=== PATIENT | male | born 1955 | race Caucasian/White ===

== ENCOUNTER → 2017-12-16 10:48 | Outpatient (CLI) | payer BC, SELFPAY ==
[2014-12-21 12:18] VITALS: BP 122/79
[2017-12-16 11:38] LABS: Hematocrit 44.1 % (40-54); Hemoglobin 15.5 g/dl (13.0-16.5); Mean Corp Hgb Conc 35.1 g/gl (32-36); Mean Corpuscular Hgb 29.4 pg (27.0-32.0); Mean Corpuscular Volume 83.7 fL (80-94); Mean Platelet Vol. 9.7 fl (6.2-12.0); Platelet Count 230 K/mm3 (150-450); RBC Distribution Width CV 13.9 % (11.6-14.6); RBC Distribution Width SD 42.1 fl (35.1-43.9); Red Blood Count 5.27 M/mm3 (4.6-6.2); White Blood Count 4.5 K/mm3 (4.4-11.0)
[2017-12-16 11:40] LABS: Scan Indicated on CBC? Y/N NO
[2017-12-16 12:04] LABS: PSA,Total - Annual Screen 4.19 ng/mL (0.00-4.00)
[2017-12-16 12:09] LABS: ALB/GLOB Ratio 1.2 RATIO (0.9-2.4); AST(SGOT) 16 U/L (15-37); Alanine Aminotransfer ALT/SGPT 28 U/L (16-61); Albumin, Serum 4.1 g/dL (3.2-5.0); Alkaline Phosphatase 75 U/L (45-117); Anion Gap 6 (5-15); BUN 18 mg/dL (7-18); BUN/Creat Ratio 19.6 RATIO (10-20); Chloride 104 mmol/L (98-107); Creatinine, Serum 0.92 mg/dL (0.70-1.30); EST Glomerular Filtration Rate 88 mL/min (>60); Est Glom Filt Rate - Afr Amer 107 mL/min (>60); Globulin 3.4 g/dL (2.2-4.2); Glucose 96 mg/dL (70-110); Potassium 3.9 mmol/L (3.5-5.1); Protein, Total 7.5 g/dL (6.4-8.2); Sodium Level 139 mmol/L (136-145); Thyroid Stim Hormone (TSH) 0.97 uIU/mL (0.358-3.74)
[2017-12-17 03:56] LABS: Rapid Plasmin Reagin (RPR) NONREACTIVE (NONREACTIVE)
[2017-12-17 08:32] LABS: Vitamin B12 302 pg/mL (211-911)
== END ==
PROVIDERS: Family Provider Family Medicine; PCP Family Medicine; Visit Provider Psychiatry & Neurology Neurology
DX: R41.3 Other amnesia (principal); R25.1 Tremor, unspecified; Z12.5 Encounter for screening for malignant neoplasm of prostate
CPT/HCPCS: 36415; 80053; 82607; 84153; 84443; 85027; 86592; G0103

== ENCOUNTER → 2018-01-24 16:53 | Outpatient (CLI) | payer BC, SELFPAY ==
--- NOTE | 2018-01-24 17:46 | MRI_ITS ---
STUDY: MRI BRAIN WITHOUT CONTRAST REASON FOR EXAM: Male, 62 years old. Left hand tremors TECHNIQUE: Standardized multiplanar fat and water weighted pulse sequences were obtained. COMPARISON: None. FINDINGS: Mild atrophy and minor periventricular white matter ischemic changes without evidence for acute infarct.. Normal bilateral basal ganglia. Normal thalami. There is no extra-axial fluid accumulation. Normal flow voids within the major intracranial circulation suggesting patency by spin echo criteria. Normal sella turcica, pituitary gland, infundibular stalk, optic chiasm and hypothalamus. Normal tectal plate and pineal gland. Normal midbrain, ludy and medulla. Normal cerebellum. Normal basal cisterns. Normal bilateral temporal bones. Normal bilateral internal auditory canals. No demonstrated orbital abnormality, within the constraints of a routine brain study. There is mild bilateral ethmoid sinus disease. Normal calvarium and skull base. Normal visualized soft tissue structures. Normal visualized upper cervical spine. MRI/Brain without Contrast IMPRESSION: Mild atrophy and minor periventricular white matter ischemic changes without evidence for acute infarct Electronically Signed: Yadiel Augustin MD at 21:31 EDT , Service support ,
== END ==
PROVIDERS: Family Provider Family Medicine; PCP Family Medicine; Visit Provider Psychiatry & Neurology Neurology
DX: R41.3 Other amnesia (principal); R25.1 Tremor, unspecified
CPT/HCPCS: 70551

== ENCOUNTER → 2018-03-24 07:54 | Outpatient (CLI) | payer BC, SELFPAY ==
[2018-03-24 10:22] LABS: Glucose 110 mg/dL (74-106); PSA,Total - Annual Screen 3.86 ng/mL (0.00-4.00)
== END ==
PROVIDERS: Family Provider Family Medicine; PCP Family Medicine; Visit Provider Family Medicine
DX: E66.9 Obesity, unspecified (principal); Z12.5 Encounter for screening for malignant neoplasm of prostate
CPT/HCPCS: 36415; 82947; 84153; G0103

== ENCOUNTER 2019-01-11 07:00 | Inpatient (IN) | payer BC, SELFPAY ==
[2018-12-28 15:15] VITALS: BP 125/70; PULSE 84; RESP 17; TEMP 36.9; O2SAT 97; BMI 33.7
--- NOTE | 2018-12-28 15:36 | SDCEKG_ITS ---
Test Reason : Blood Pressure : / mmHG Vent. Rate : 080 BPM Atrial Rate : 080 BPM P-R Int : 146 ms QRS Dur : 092 ms QT Int : 350 ms P-R-T Axes : 046 -03 023 degrees QTc Int : 403 ms Normal sinus rhythm Possible Left atrial enlargement Borderline ECG Confirmed by GABRIEL HENSON, KORY ([id number]), slot editor BRANDIE CALLAHAN ([id number]) on 12/30/2018 8:36:44 AM Referred By: Mac Bhardwaj Confirmed By:KORY RIOS MD
[2018-12-28 16:27] LABS: Absolute Lymphocyte Count 1.34 X10^3/ul (0.83-4.51); Basophil# 0.02 X10^3/uL; Basophil% 0.3 % (0-1); Eosinophil# 0.04 X10^3/uL; Eosinophils% 0.7 % (0-5); Hematocrit 47.3 % (40-54); Hemoglobin 15.8 g/dl (13.0-16.5); Lymphocyte # 1.34 X10^3/ul (4.0); Lymphocyte % 22.6 % (19-41); Mean Corp Hgb Conc 33.4 g/gl (32-36); Mean Corpuscular Hgb 28.8 pg (27.0-32.0); Mean Corpuscular Volume 86.3 fL (80-94); Mean Platelet Vol. 9.5 fl (6.2-12.0); Monocyte# 0.54 X10^3/uL; Monocyte% 9.1 % (0-10); Neutrophil # 3.97 X10^3/uL (2.7-7.7); Neutrophil % 67.1 % (47-70); Platelet Count 248 K/mm3 (150-450); RBC Distribution Width CV 13.1 % (11.6-14.6); RBC Distribution Width SD 40.5 fl (35.1-43.9); Red Blood Count 5.48 M/mm3 (4.6-6.2); White Blood Count 5.9 K/mm3 (4.4-11.0)
[2018-12-28 16:36] LABS: POSITIVE COUNT NO; POSITIVE DIFFERENTIAL NO; POSITIVE MORPHOLOGY NO
--- NOTE | 2018-12-28 16:36 | PCM.HP.BLA ---
History and Physical DATE OF SURGERY: 01/11/2019 SCHEDULED PROCEDURE: Left total knee arthroplasty HISTORY OF PRESENT ILLNESS: This is a 63-year-old male who has been having ongoing left knee pain for several years. He states it is progressively been getting worse. Patient states his pain is now constant, dull, aching, and sharp. Patient has increased pain going up and down stairs, driving, and standing for extended periods of time. Pain is located over the medial joint line. Patient states pain does wake him at night. He has difficult time with doing leisure activities such as mowing, running, and kneeling due to the pain. She did stumble secondary to his left knee. Patient feels unsafe going up and down stairs. Patient has tried ice, heat, previous corticosteroid injection with no relief in symptoms. Patient has had 2 previous corticosteroid injections by Dr. Wagner. Patient reports slightly good relief from the first injection but no relief from the second injection. He has tried [id number] Advil with no relief in symptoms. Patient denies previous surgery on the left knee. Patient has a medical history pertinent for sleep apnea, essential tremors, and gastroesophageal reflux disease. He currently denies chest pain, shortness of breath, fevers chills, recent infections. We are obtaining surgical clearance from the patient's primary care physician. REVIEW OF SYSTEMS: ROS: Const: Denies change in appetite, fever and weight change. CV: Denies chest pain, heart murmur and irregular heartbeat. Resp: Denies cough, pneumonia, shortness of breath, tuberculosis and wheezing. GI: Denies constipation, diarrhea, heartburn, nausea, rectal itching, bloody stools and vomiting. : Denies incontinence. Musculo: Reports gait disturbance and trouble walking, but denies leg swelling, pain and weakness. Skin: Denies Raynaud's, history of shingles and tattoo. Neuro: Reports ambulatory dysfunction and tremor but denies dizziness and numbness/tingling. Psych: Denies anxiety, insomnia and stress. Terry/Lymph: Denies anemia, bleeding/bruising tendency and past transfusion. Reviewed, no changes. PAST MEDICAL HISTORY: Advance Care Plan: Other Directive, LIVING WILL Effective Date: 12/22/2018 Other Directive, POA Effective Date: 12/22/2018 PMH: Medical Problems: Sleep Apnea, Reflux, Seasonal Allergy, Rheumatic Fever as A Child Accidents: None Surgical Hx: Hernia Repair, Nasal Surgery, Fatty Tumors From Shoulder Anesthesia Complications: None Assistive Devices: Glasses Reviewed and updated. SOCIAL HISTORY: SH: Marital: .Occupation: Education Program Coordinator.Work Status: Currently Working.Hand Dominance: Right-handed. Personal Habits: Cigarette Use: Never Smoked Cigarettes.Smokeless Tobacco: Never Used Smokeless Tobacco.E-Cigarette Use: Never used.Alcohol: Denies use.Drug Use: Denies Use.Enjoy Exercising: Never Exercises. Reviewed, no changes. VITALS: Ht: 67.5 Wt: 224lb Wt k.606 BMI: 34.6 BP: 184/82 Pulse: 88 Resp: 12 T: 99.0 T: 37.2C ALLERGIES: Amoxicillin Penicillin MEDICATIONS: Primidone 50 mg tid, Vitamin B12 TR 1000 mcg 1po qday, Miralax 1po qday, Glucosamine Chondroitin 1500 Complex 1500 Com 1po qday, Multivitamins 1po qday, Vitamin D3 62106 Unit 1po qday, Claritin 10 mg by mouth once daily, Prilosec OTC 20 mg qd PRE-OP EXAM: General appearance:NORMAL Other: Eyes: Conjunctivae and lids: NORMAL Pupils: ERR Ears, Nose, Mouth, and Throat: NORMAL Other: Inspection of lips, teeth and gums: NORMAL Other: Neck: Examination of neck: no masses noted. Respiratory: Assessment of respiratory effort: NORMAL Other: Auscultation of lungs: clear to auscultation no wheezes, rhonchi or rales. Cardiovascular: Auscultation of heart: regular rate and rhythm, no murmurs, gallops or rubs. Exam of carotid arteries: NORMAL Other: Gastrointestinal: Exam of abdomen: soft, nontender, nondistended bowel sounds present. PHYSICAL EXAMINATION: Patient walks with an antalgic gait. Patient has varus alignment of the left knee. There is tenderness to palpation of the medial joint line. Positive effusion. Range of motion left knee: Lacks 7 of full extension to 110 flexion. Stable to varus valgus stress test. Partially correctable varus alignment. Positive click with Jem's examination. Sensation intact to light touch. Neurovascularly intact. IMAGING STUDIES: X-rays of the left knee reveal varus alignment with medial joint space narrowing, subchondral sclerosis, and osteophyte formation consistent with severe osteoarthritis. IMPRESSION: 1. Severe left knee osteoarthritis 2. Sleep apnea 3. Essential tremors 4. Gastroesophageal reflux disease PLAN: Dr. Mac Bhardwaj did discuss and review with the patient all treatment options including surgical versus nonsurgical options. Patient does wish to proceed with the above-stated procedure. Potential risks, benefits, and complications of the procedure were discussed in detail including but not limited to , infection, nerve and blood vessel damage, persistent pain, numbness, tingling, paresthesias, blood clot, pulmonary embolism, and requirement for possible further surgery. The patient expressed full understanding and has no further questions for the doctor. Patient does agree to proceed with the above-stated procedure and has signed the surgery consent form. This dictation was created using voice recognition software. Phonetic and/or grammatical errors may exist.. ___ I have re-examined the patient. There are no clinical changes since date of exam. ___ See progress notes for changes. ___ Dictated on admission Date: Time: Signature:
[2018-12-28 16:45] LABS: Anion Gap 7 (5-15); BUN 21 mg/dL (7-18); BUN/Creat Ratio 23.1 RATIO (10-20); Chloride 104 mmol/L (98-107); Creatinine, Serum 0.91 mg/dL (0.70-1.30); EST Glomerular Filtration Rate 89 mL/min (>60); Est Glom Filt Rate - Afr Amer 108 mL/min (>60); Glucose 77 mg/dL (74-106); Potassium 4.1 mmol/L (3.5-5.1); Sodium Level 139 mmol/L (136-145)
[2019-01-11] VITALS (14 sets, daily range): BP systolic 113–152; BP diastolic 60–79; PULSE 79–104; RESP 16–18; TEMP 36.7–37.3; O2SAT 91–99; BMI 33.7
[2019-01-11] MEDS: Celecoxib 200 MG Capsule 400 MG PO (07:44)
[2019-01-11] MEDS: oxyCODONE HCl Cr 10 MG Tablet PO (07:44)
[2019-01-11] MEDS: Acetaminophen 500 MG Tablet 1000 MG PO ×3 (07:45→21:05)
[2019-01-11] MEDS: Lactated Ringers 1,000 ML 999 ML IV ×2 (08:00→12:15)
[2019-01-11] MEDS: Scopolamine 1mg/72hr Patch 1 PATCH TD (10:00)
--- NOTE | 2019-01-11 10:20 | OP.PCM_ITS ---
Report of Operation Date of Procedure: 01/11/19 Pre-Operative Diagnosis: Left knee primary osteoarthritis Post-Operative Diagnosis: Left knee primary osteoarthritis Surgery/Procedure Performed:: Navigation assisted left total knee replacement Description of Surgical Findings:: Stable knee with good patella tracking feltmaker and weigher: Dona Laureano Type of Anesthesia:: Spinal Anesthesiologist: Jairo Escalona Special Medications: 600 mg clindamycin, 1 g TXA at incision, 1 g TXA closure, 10 mg Decadron, joint cocktail (5 mg Duramorph, 30 mL of 0.5% Ropivicaine, 1000 units of epinephrine, 30 mg of Toradol) Specimen's removed: Bony cuts Estimated Blood Loss (mL): 50 Fluids Replaced: 1400 mL crystalloid Description of Procedure: Implants used: 1. Chance size 6 press-fit triathlon cruciate retaining distal femoral component 2. Chance size 7 press-fit tibial baseplate 3. Chance X3 9 mm CS polyethylene 4. Chance X3 35 mm asymmetric patella Brief history operative indications: 63-year-old M with history of L knee osteoarthritis with radiographic findings with loss of joint space, osteophyte formation and subchondral sclerosis. Failed conservative measures as mentioned in the H&P. Discussion of total knee arthroplasty as well as risk and benefits were discussed the patient including but not limited to blood loss, DVTs, PEs, neurovascular damage, general risk of anesthesia including loss of life, and stiffness or instability were discussed with patient. Patient demonstrated understanding and was able to sign informed consent. Procedure: On the date of procedure patient's L lower extremity was marked in the preoperative area. The patient was then taken back to the operating room where the patient was placed on the table in the supine position. All bony prominences were identified a well-padded. Anesthesia assumed control of the C-spine and airway and remained controlled throughout the remainder of the procedure. A tourniquet was placed on the L upper thigh and the leg was prepped in a sterile fashion. The surgeon then scrubbed at this time. Upon reentering the room R lower extremity was draped in a standard orthopedic fashion. A timeout was then called and everyone agreed upon the side, the site, the procedure to be performed, patient's identity and antibiotics given. Esmarch bandage was used to exsanguinate the extremity and the tourniquet was placed up to 250 mmHg with the knee in flexion. A midline skin incision was made and sharp dissection was taken down through skin subcutaneous tissue and fat. The standard medial parapatellar incision was made and the patella was subluxed laterally. The standard deep MCL release was done and the fat pad was resected. Next our attention was directed to the femur. Navigation pins were placed, navigation was registered. The distal femoral cutting block was pinned into place and 10 mm of distal femur resection was completed. The distal femoral cut was verified with navigation. The knee was then placed in deep flexion in the standard Spinal Restoration sizing guide was used to place the femoral component in 3? external rotation based on the posterior condyles. A size 6 4-in-1 cutting block was selected and pinned into place. The anterior cut was then made and checked for notching. The subsequent anterior chamfer cuts, posterior condylar cuts and posterior chamfer cuts were made while ensuring the MCL and LCL were protected. Our attention was then turned to the tibia where the navigation pins were placed, navigation was registered. ison furniture tibial cutting guide was used to make the appropriate tibial cut 90 degrees from the mechanical axis. Navigation was then used to verify the cut. A size 7 tibial base plate was selected. the knee was flexed to 90 degrees and the soft tissues and posterior osteophytes were removed from the joint. 40 cc of the periarticular injection was injected into the posterior medial corner of the joint. The appropriate trials were then placed on the femur and tibia. A trial polyethylene was trialed to ensure proper balancing and stability of the knee. Patella tracking, was then verified and corrected appropriately as needed. The appropriate tibial internal rotation was then marked with a bovie. Our attention was then directed to the patella. The patella was everted and a flat resection was made. The lug holes were drilled and the patella trial was placed. Patellar tracking was checked and deemed appropriate. Once we were happy lug holes were drilled for the femur and trial components were removed. Cement was mixed at this time and the tourniquet was let down the tibia was subluxed and pinned into place and the keel was punched and the canal was reamed. Final components were verified and opened, and cement was mixed in a vacuum. Chance Simplex cement was used. The wound was copiously irrigated with normal saline. When the cement was ready the press-fit components were impacted into place starting with the tibia, femur and finally the patella cemented into place. The trial poly component was placed and the knee was placed in full extension. All excess cement was removed in the process. Once the cement had cured the tracking, alignment and balance were verified and a size 9 mm polyethylene component was placed. Once the final components were placed the wound was copiously irrigated with normal saline solution and the periarticular injection was given. The wound was closed in a layer mckeon fashion using #1 vicryl interrupted sutures for the arthrotomy, 2-0 interrupted Vicryl suture for the subcuticular layer and dominic for final skin closure. A sterile compressive dressing was then placed. The patient was then awakened from anesthesia, transferred to the rexeter and transferred to the PACU for recovery. Post op plan DVT ppx: ASA 81mg, thigh high compression stockings Follow up: in office in 2 weeks for wound check PT: to start POD #0 at hospital, outpatient PT should be arranged. Grafts/Implants Used: Chance triathlon press-fit total knee - Complications No intraoperative complications - Admit VTE Documentation VTE Present on Admission: No VTE Mechan Device Prophylaxis: SCD's, Thigh High ESTHER Hose VTE Pharm Prophylaxis ordered?: Yes
--- NOTE | 2019-01-11 11:10 | RAD_ITS ---
STUDY: X-RAY - LEFT KNEE REASON FOR EXAM: Male, 63 years old. Total knee replacement. TECHNIQUE: AP and lateral view(s) of the knee. COMPARISON: Comparison is made with prior examination dated November 19, 2016. FINDINGS: Normal visualized distal femur. Normal visualized proximal tibia and fibula. Normal proximal tibiofibular articulation. The patient is status post total knee replacement. There is good alignment. Postoperative soft tissue changes. RAD/Knee 1 or 2 Views IMPRESSION: Status post total knee replacement. There is good alignment. Postoperative soft tissue changes. Electronically Signed: Landon Travis, at 15:30 EST , Service support ,
[2019-01-11] MEDS: Lactated Ringers 1,000 ML 125 ML IV ×2 (12:19→20:45)
[2019-01-11] MEDS: Loratadine 10 MG Tablet PO (14:17)
[2019-01-11] MEDS: Psyllium 1 PACKET PO (14:18)
[2019-01-11] MEDS: Primidone 50 MG Tablet PO ×2 (14:19→21:05)
--- NOTE | 2019-01-11 15:50 | CHAPLAIN ---
Type of Pastoral Visit _x__ Initial Visit ___ Follow-up Visit ___ On-call Visit ___ General Patient Visit ___ Spiritual Assessment ___ Family Conference ___ Bereavement ___ Rapid Response ___ Code Blue ___ Other (describe below) Pastoral Care Referral From _x__ Patient _x__ Family ___ Nurse ___ Physician ___ Switchboard Troubleshooter ___ Inbound Customer Service Agent ___ Other (describe below) Sacrament/Intervention _x__ Active listening ___ Anointing ___ Shinto ___ Bereavement ___ Communion ___ Meliza exploration ___ _x__ Life review _x__ Prayer ___ Reconciliation ___ Sacrament of Sick _x__ Supportive presence ___ Wedding ___ Other (describe below) Pastoral Comments patient is known to this sales and marketing professional; pt welcomes visit and prayer from sales and marketing professional; pt is able to converse even as he is post op; spouse with pt at this time;
[2019-01-11] MEDS: Aspirin 81 MG TAB.CHEW PO (16:34)
[2019-01-11] MEDS: Senna/Docusate Sodium 1 Tablet 2 TABLET PO (21:05)
[2019-01-12] MEDS: 0.9% NaCl Peripheral Flush Adult/Peds IV ×2 (01:12→05:58)
[2019-01-12] MEDS: oxyCODONE 5 MG Tablet PO ×2 (02:54→11:26)
[2019-01-12 02:57] VITALS: BP 102/55; PULSE 73; RESP 16; TEMP 36.7; O2SAT 95
[2019-01-12] MEDS: Acetaminophen 500 MG Tablet 1000 MG PO ×2 (06:00→14:08)
[2019-01-12] MEDS: Primidone 50 MG Tablet PO ×2 (06:00→14:08)
[2019-01-12 06:29] LABS: Anion Gap 10 (5-15); BUN 27 mg/dL (7-18); BUN/Creat Ratio 31.1 RATIO (10-20); Calcium,Total 8.4 mg/dL (8.5-10.1); Chloride 109 mmol/L (98-107); Creatinine, Serum 0.87 mg/dL (0.70-1.30); EST Glomerular Filtration Rate 94 mL/min (>60); Est Glom Filt Rate - Afr Amer 114 mL/min (>60); Glucose 112 mg/dL (74-106); Potassium 4.3 mmol/L (3.5-5.1); Sodium Level 139 mmol/L (136-145)
[2019-01-12 06:50] LABS: Hematocrit 36.7 % (40-54); Mean Corp Hgb Conc 32.7 g/gl (32-36); Mean Corpuscular Hgb 29.5 pg (27.0-32.0); Mean Corpuscular Volume 90.2 fL (80-94); Mean Platelet Vol. 9.8 fl (6.2-12.0); Platelet Count 193 K/mm3 (150-450); RBC Distribution Width CV 13.4 % (11.6-14.6); Red Blood Count 4.07 M/mm3 (4.6-6.2); White Blood Count 10.1 K/mm3 (4.4-11.0)
[2019-01-12 06:52] LABS: Scan Indicated on CBC? Y/N NO
[2019-01-12 07:10] VITALS: O2SAT 94
--- NOTE | 2019-01-12 09:35 | PN.ORTHO_ITS ---
Subjective: The patient was sitting in bedside chair upon examination. Patient denies any chest pain, shortness of breath, dizziness, lightheadedness, nausea or vomiting, or calf pain. Pain is controlled on medications. No adverse overnight events. Patient just got done with physical therapy and tolerated very well. Pain is been well controlled. Patient does wish to try to go home today after afternoon physical therapy. Objective: Vital signs stable and afebrile. Patient is able to plantarflex and dorsiflex actively. Sensation is intact to light touch to saphenous, sural, superficial and deep peroneal, and tibial distribution. Dressing is clean dry and intact. Negative Homans bilaterally, negative signs and symptoms of DVT. - Physical Exam General: Alert, Oriented x3, Cooperative, No apparent distress Vital Signs Temp Pulse Resp BP Pulse Ox 98.1 F 73 16 102/55 L 94 01/12/19 02:57 01/12/19 02:57 01/12/19 02:57 01/12/19 02:57 01/12/19 07:10 Oxygen Flow Rate (L/min) 2 Oxygen Delivery Method Room Air Weight: 100.8 kg Body Mass Index (BMI) 33.7 Intake and Output for Last 24 Hours 01/10/19 01/11/19 01/12/19 23:59 23:59 23:59 Intake Total 2840 / 2840 1347 / 1347 Output Total 200 / 200 775 / 775 Balance 2640 / 2640 572 / 572 Laboratory Tests Past 24 Hrs 01/12/19 01/12/19 05:44 05:44 WBC 10.1 RBC 4.07 L Hgb 12.0 L Hct 36.7 L MCV 90.2 MCH 29.5 MCHC 32.7 RDW 13.4 RDW Differential 44.0 H Plt Count 193 MPV 9.8 Sodium 139 Potassium 4.3 Chloride 109 H Carbon Dioxide 20.0 L Anion Gap 10 BUN 27 H Creatinine 0.87 Estim Creat Clear Calc 81.90 Est GFR (MDRD) Af Amer 114 Est GFR (MDRD) Non-Af 94 BUN/Creatinine Ratio 31.1 H Glucose 112 H Calcium 8.4 L Medical Necessity - Tobacco Use Smoking Status: Never smoker Assessment/Plan 1. S/P left total knee arthroplasty POD #1 2. Continue Pain Medications: Tylenol and OxyIR 3. DVT Prophylaxis: Aspirin 81 mg twice daily with food for 4 weeks postoperatively 4. PT/OT: Weightbearing as tolerated 5. H & H: 12.0/36.7, asymptomatic 6. Encouraged Incentive Spirometry 7. Disposition: Orthopedically stable, plan will be for discharge home this afternoon. Patient has outpatient physical therapy scheduled to begin Wednesday at [facility]. Patient will have prescriptions E scribed to [facility]. He will follow-up per postop instructions.
[2019-01-12] MEDS: Aspirin 81 MG TAB.CHEW PO (09:36)
[2019-01-12] MEDS: Meloxicam 7.5 MG Tablet PO (09:37)
[2019-01-12] MEDS: Famotidine 20 MG Tablet PO (09:37)
[2019-01-12] MEDS: Multivitamins,Therapeutic Tablet 1 TABLET PO (09:37)
[2019-01-12] MEDS: Loratadine 10 MG Tablet PO (09:37)
[2019-01-12] MEDS: Senna/Docusate Sodium 1 Tablet 2 TABLET PO (09:37)
[2019-01-12] MEDS: Cyanocobalamin 500 MCG Tablet 1000 MCG PO (09:38)
--- NOTE | 2019-01-12 09:39 | PCM.DC.TKR ---
Discharge Diet: No Restrictions Discharge Activity: May Not Drive May shower in (days): 1 - Turned dressing away from water Ice area for (Minutes): 20 - every hour while awake. Weight Bearing Status: Weight bearing as tolerated Elevate: Operative Extremity Additional Activity Instructions:: Wear elastic stockings for 2 weeks after your surgery. Call your doctor if your incision/area has: Continuous Slow Oozing, Sudden Increased Bleeding, Increased Pain/ Swelling, Increased Redness, Foul Smelling Discharge Call your doctor if you observe: Fever of 101 or Higher, Coldness, Increased Pain, Numbness or Tingling, Change in Color, Calf discomfort, Uncontrolled pain Remove Dressing in (days):: 4 - Okay to remove dressing on January 16, 2019 Additional Instructions: Follow [facility] postop instructions Allergies/Adverse Reactions: Allergies amoxicillin Allergy (Verified 01/11/19 07:33) Hives SEVERE RASH Medications to take at Discharge Cholecalciferol (Vitamin D3) [Vitamin D3] 5,000 unit PO DAILY 12/28/18 Cyanocobalamin (Vitamin B-12) [Vitamin B-12] 1,000 mcg PO DAILY 12/28/18 Loratadine [Claritin] 10 mg PO DAILY 12/28/18 Multivitamin [Daily Multiple Vitamin] 1 each PO DAILY 12/28/18 Omeprazole [Prilosec] 20 mg PO DAILY 12/28/18 Primidone 50 mg PO TID 12/28/18 Psyllium Husk [Metamucil] 1 cap PO DAILY 12/28/18 Tamsulosin HCl [Flomax] 0.4 mg PO DAILY 01/11/19 Acetaminophen [Tylenol] 1,000 mg PO Q8 #90 tablet 01/12/19 Aspirin [Aspirin, Baby] 81 mg PO BIDCM #60 tab.chew 01/12/19 Meloxicam [Mobic] 7.5 mg PO BID #60 tablet 01/12/19 Oxycodone [Oxyir] 5 - 10 mg PO Q4H PRN PRN 5 Days #60 tablet 01/12/19 The following prescriptions were given: Oxycodone [Oxyir] 5 - 10 mg PO Q4H PRN PRN 5 Days #60 tablet PRN Reason: Mod-Severe Pain (-08/24) Acetaminophen [Tylenol] 1,000 mg PO Q8 #90 tablet Aspirin [Aspirin, Baby] 81 mg PO BIDCM #60 tab.chew Meloxicam [Mobic] 7.5 mg PO BID #60 tablet Primary Care Physician: Jl Fernandez MD [Primary Care Provider] - Test Results: Test results from this visit will be discussed in further detail at your follow-up appointment, if applicable. Please Follow Up With: [facility] When: 01/16/19 Please Follow Up With: Carlos Dowling PA-C When: 01/25/19 @ 10:00 am
[2019-01-12] MEDS: Pantoprazole Sodium 20 MG Tablet PO (09:40)
[2019-01-12] MEDS: Psyllium 1 PACKET PO (09:41)
[2019-01-12 09:56] VITALS: BP 113/71; PULSE 73; RESP 18; TEMP 36.8; O2SAT 94
--- NOTE | 2019-01-12 10:25 | CASEMGMT ---
RN CM Face to Face with patient for initial transition planning/care coordination assessment. RN CM introduced self and role at [facility]. Patient sitting in chair, alert and oriented. Patient willing to participate in assessment and is able to answer all questions appropriately. Care providers, pharmacy, and demographics verified. Patient wishes to discharge home and is setup with [facility] for outpatient therapy. Family requesting tub bench. Script received and given to patient. Patient states he has no further needs or concerns at this time. CM to follow for discharge planning needs that may arise. PCP: Jim Specialists: [facility] neurologist Preferred Pharmacy: [facility] Insurance: [place] Prescription Benefit: yes Living Will/HPOA: yes, Radha Josue LNOK: Living Arrangements: Patient lives with in 1 story home with 3 steps to enter home. Transportation: DME/HHC: Patient states he has walker, cane, and BSC Disposition Plan: Patient to discharge home with outpatient therapy, family support, and follow-up plans in place. Lissette YOUNGN, RN, CM
--- NOTE | 2019-01-12 12:52 | CHAPLAIN ---
Type of Pastoral Visit ___ Initial Visit _x__ Follow-up Visit ___ On-call Visit ___ General Patient Visit ___ Spiritual Assessment ___ Family Conference ___ Bereavement ___ Rapid Response ___ Code Blue ___ Other (describe below) Pastoral Care Referral From _x__ Patient _x__ Family ___ Nurse ___ Physician ___ Tape Sewing Machine Operator ___ Motorized Squad Lieutenant ___ Other (describe below) Sacrament/Intervention _x__ Active listening ___ Anointing ___ Jehovah'S Witness ___ Bereavement ___ Communion ___ Meliza exploration ___ ___ Life review _x__ Prayer ___ Reconciliation ___ Sacrament of Sick ___ Supportive presence ___ Wedding ___ Other (describe below) Pastoral Comments
[2019-01-12 14:13] VITALS: BP 132/56; PULSE 84; RESP 18; TEMP 37.3; O2SAT 94
== END 2019-01-12 14:16 | disposition home or self-care (01) | DRG 470 ==
LOC: ACINP 10:20 → MS3 10:21
PROVIDERS: Admitting Provider Specialist; Family Provider Family Medicine; PCP Family Medicine; Referring Provider Specialist; Visit Provider Specialist
PROC: 0SRD0JA Replacement of Left Knee Joint with Synthetic Substitute, Uncemented, Open Approach (ICD-10-PCS; CPT 27447; principal; 2019-01-11 08:45)
DX: M17.12 Unilateral primary osteoarthritis, left knee (principal); G47.30 Sleep apnea, unspecified; G25.0 Essential tremor; K21.9 Gastro-esophageal reflux disease without esophagitis
CPT/HCPCS: 36415; 73560; 80048; 85025; 85027; 87081; 93005; 94762; 97110; 97116; 97162; 97166; 97530; 97535; 99251; C1776; J7120; A4216; G0463

== ENCOUNTER → 2019-03-23 | Outpatient (CLI) | payer BC, SELFPAY ==
[2019-01-11 12:47] VITALS: BMI 33.7
--- NOTE | 2019-03-23 15:03 | RAD_ITS ---
STUDY: X-RAY - LUMBAR SPINE REASON FOR EXAM: Male, 63 years old. Pain TECHNIQUE: 5 view(s) of the lumbar spine were obtained. COMPARISON: None FINDINGS: There is no evidence of fracture or dislocation in the lumbar spine. There is a probable bone island within the L3 vertebral body. There is mild disc space loss and osteophytosis from L2 through L5. There are no significant degenerative changes. RAD/L/S Spine Min 4 Views IMPRESSION: No fracture or dislocation in the lumbar spine. Mild multilevel degenerative changes. Probable bone island within the L3 vertebral body. Correlate clinically. Electronically Signed: Yadiel Yoo, at 16:37 EDT Tel , Service support ,
--- NOTE | 2019-03-23 15:10 | RAD_ITS ---
STUDY: X-RAY - THORACIC SPINE REASON FOR EXAM: Male, 63 years old. Back pain TECHNIQUE: 3 view(s) of the thoracic spine were obtained. COMPARISON: None. FINDINGS: Normal kyphosis of the thoracic spine. There is no substantial scoliosis. There is multilevel endplate spondylosis of the thoracic vertebrae. There is multilevel disc space narrowing of the thoracic spine. The soft tissue structures are unremarkable. RAD/Thoracic Spine 3 Views IMPRESSION: 1. Degenerative disc disease and spondylosis. No compression deformity. Electronically Signed: Genaro Desai MD at 12:39 EDT , Service support ,
== END | disposition home or self-care (01) ==
PROVIDERS: Family Provider Family Medicine; PCP Family Medicine; Referring Provider Family Medicine; Visit Provider Family Medicine
DX: M54.5 Low back pain (principal)
CPT/HCPCS: 72072; 72110

== ENCOUNTER 2019-07-26 09:49 | Day surgery (SDC) | payer BC, SELFPAY ==
[2019-01-11 12:47] VITALS: BMI 33.7
[2019-07-14 17:30] LABS: Hematocrit 42.7 % (40-54); Hemoglobin 14.4 g/dL (13.0-16.5); Mean Corp Hgb Conc 33.7 g/dL (32-36); Mean Corpuscular Hgb 29.7 pg (27.0-32.0); Mean Platelet Vol. 10.1 fl (6.2-12.0); Platelet Count 234 K/mm3 (150-450); RBC Distribution Width CV 12.8 % (11.6-14.6); RBC Distribution Width SD 41.7 fl (35.1-43.9); Red Blood Count 4.85 M/mm3 (4.6-6.2); White Blood Count 5.8 K/mm3 (4.4-11.0)
[2019-07-14 17:39] LABS: Anion Gap 7 (5-15); BUN 18 mg/dL (7-18); BUN/Creat Ratio 17.5 RATIO (10-20); Calcium,Total 9.1 mg/dL (8.5-10.1); Chloride 107 mmol/L (98-107); Creatinine, Serum 1.03 mg/dL (0.70-1.30); EST Glomerular Filtration Rate 77 mL/min (>60); Est Glom Filt Rate - Afr Amer 93 mL/min (>60); Glucose 144 mg/dL (74-106); Potassium 3.6 mmol/L (3.5-5.1); Sodium Level 140 mmol/L (136-145)
[2019-07-26] VITALS (11 sets, daily range): BP systolic 94–175; BP diastolic 57–93; PULSE 63–76; RESP 16–18; TEMP 36.1–36.9; O2SAT 94–97; BMI 32.4
[2019-07-26] MEDS: Lactated Ringers 1,000 ML 100 ML IV (10:25)
--- NOTE | 2019-07-26 11:22 | DCINST_ITS ---
Discharge Diet: Light diet - advance as tolerated Discharge Activity: Return to Normal Activity Call your doctor if your incision/area has: Continuous Slow Oozing, Sudden Increased Bleeding, Increased Pain/ Swelling, Increased Redness, Foul Smelling Discharge, Swelling at the incision site Allergies/Adverse Reactions: Allergies amoxicillin Allergy (Verified 07/26/19 09:57) Hives SEVERE RASH Medications to take at Discharge Cholecalciferol (Vitamin D3) [Vitamin D3] 5,000 unit PO DAILY 12/28/18 Cyanocobalamin (Vitamin B-12) [Vitamin B-12] 1,000 mcg PO DAILY 12/28/18 Multivitamin [Daily Multiple Vitamin] 1 each PO DAILY 12/28/18 Omeprazole [Prilosec] 20 mg PO DAILY 12/28/18 Psyllium Husk [Metamucil] 1 cap PO BID 12/28/18 Carbidopa/Levodopa 25/250 [Sinemet] 1 tab PO TIDAC 07/11/19 Cetirizine HCl/Pseudoephedrine [Zyrtec-D Tablet] 1 ea PO DAILY PRN 07/11/19 Co Q10 200 [Co Q-10] 100 mg PO DAILY 07/11/19 Melatonin 3 mg PO QHS 07/11/19 Milk Thistle 150 mg PO DAILY 07/11/19 Ropinirole HCl [Requip] 4 mg PO BID 07/11/19 Tyrosine [Pure l-Tyrosine] 350 mg PO DAILY 07/11/19 Ciprofloxacin [Cipro] 500 mg PO BID #14 tab 07/26/19 Ibuprofen 600 mg PO Q6H PRN PRN #20 tab 07/26/19 The following prescriptions were given: Ciprofloxacin [Cipro] 500 mg PO BID #14 tab Prescription Printed Ibuprofen 600 mg PO Q6H PRN PRN #20 tab PRN Reason: Pain Prescription Printed Primary Care Physician: Jl Fernandez MD [Primary Care Provider] - Test Results: Test results from this visit will be discussed in further detail at your follow- up appointment, if applicable.
[2019-07-26] MEDS: Cefazolin 2 GM in 0.9% Normal Saline 100 ML IV (11:25)
--- NOTE | 2019-07-26 11:25 | DCINST_ITS ---
Discharge Diet: Light diet - advance as tolerated Discharge Activity: Return to Normal Activity Call your doctor if your incision/area has: Continuous Slow Oozing, Sudden Increased Bleeding, Increased Pain/ Swelling, Increased Redness, Foul Smelling Discharge, Swelling at the incision site Instructions: Transurethral Resection of the Prostate (TURP): Home Recovery Allergies/Adverse Reactions: Allergies amoxicillin Allergy (Verified 07/26/19 09:57) Hives SEVERE RASH Medications to take at Discharge Cholecalciferol (Vitamin D3) [Vitamin D3] 5,000 unit PO DAILY 12/28/18 Cyanocobalamin (Vitamin B-12) [Vitamin B-12] 1,000 mcg PO DAILY 12/28/18 Multivitamin [Daily Multiple Vitamin] 1 each PO DAILY 12/28/18 Omeprazole [Prilosec] 20 mg PO DAILY 12/28/18 Psyllium Husk [Metamucil] 1 cap PO BID 12/28/18 Carbidopa/Levodopa 25/250 [Sinemet] 1 tab PO TIDAC 07/11/19 Cetirizine HCl/Pseudoephedrine [Zyrtec-D Tablet] 1 ea PO DAILY PRN 07/11/19 Co Q10 200 [Co Q-10] 100 mg PO DAILY 07/11/19 Melatonin 3 mg PO QHS 07/11/19 Milk Thistle 150 mg PO DAILY 07/11/19 Ropinirole HCl [Requip] 4 mg PO BID 07/11/19 Tyrosine [Pure l-Tyrosine] 350 mg PO DAILY 07/11/19 Ciprofloxacin [Cipro] 500 mg PO BID #14 tab 07/26/19 Ibuprofen 600 mg PO Q6H PRN PRN #20 tab 07/26/19 The following prescriptions were given: Ciprofloxacin [Cipro] 500 mg PO BID #14 tab Prescription Printed Ibuprofen 600 mg PO Q6H PRN PRN #20 tab PRN Reason: Pain Prescription Printed Primary Care Physician: Jl Fernandez MD [Primary Care Provider] - Test Results: Test results from this visit will be discussed in further detail at your follow- up appointment, if applicable. Please Follow Up With: Davon Carvajal MD When: in 2 weeks, please call to make an appointment. Proposed Discharge Date: 07/27/19
--- NOTE | 2019-07-26 11:25 | PROS_PTH ---
PATIENT: YAMILA ADAMS LOC: [facility] [place] U#:[id number] AGE/SX: 63/M ROOM: RE07/26/[address]: Dr. Davon Carvajal MD : [id number] BED: DIS: 07/27/2019 SPEC #: [id number] RECD: 07/26/19 14:40 STATUS: JOHN JOSEPH #: [id number] KRISTIE: 07/26/19 11:[address]: Davon Carvajal DEPT: SURGICAL PATHOLOGY RECD BY: Festus Singer ENTERED: 07/27/19 07:44 SP TYPE: TURP SAMARA DR: Dr. Jl Fernandez MD Tissues: Prostate, NOS Procedures: Surgery Specimen Level IV HEADER OPERATION: Cysto, prostate TUR, Olympus PRE-OP DIAGNOSIS: BPH with lower urinary tract symptoms, micturition, urgency TISSUE SUBMITTED: Prostate tissue MICROSCOPIC DIAGNOSIS Prostate tissue, TUR: Benign prostatic hyperplasia, glandular and stromal type. Focal chronic inflammation. SJ:marc 07/28/19 MICROSCOPIC DESCRIPTION Slides are reviewed. GROSS DESCRIPTION Received is one container labeled with the patient's name and designated prostate tissue. The specimen consists of multiple irregular fragments of pink-miranda, rubbery, soft tissue that in aggregate weigh 3.8 gm and measure in aggregate 3.5 x 2.5 x 1 cm. The entire specimen is submitted in four cassettes. / WEI:marc 07/27/19 TC:5 CPT: 03652
--- NOTE | 2019-07-26 12:15 | PCM.OPRPT ---
Report of Operation Date of Procedure: 07/26/19 Pre-Operative Diagnosis: BPH with obstruction Post-Operative Diagnosis: Same Surgery/Procedure Performed:: Transurethral resection of the prostate Description of Surgical Findings:: 63-year-old male with a history of Parkinson's multiple medical problems but also has significant urinary symptoms with obstruction poor flow poor emptying on cystoscopy was found to have a median lobe and obstruction but very short length prostate. We talked about doing surgery to open up the channel so he can get a better flow and understand with Parkinson's he is at risk for having also overactive bladder and urge incontinence. So today we will do a transurethral resection we will make sure we severe enough tissue at the sphincter area to make sure he has a good sphincter control after surgery. 63-year-old male taken back to the operating room at the smooth induction of general anesthesia he was placed in dorsolithotomy position. Penis and testicles are prepped and draped in usual fashion. Went into the urethra with a 24 [place] noncontinuous flow resectoscope, inspect inspected the entire length urethra pendulous urethra was normal membranous urethra is normal bulbar urethra is normal sphincter was intact verumontanum was identified he had bilateral hypertrophy and a high riding bladder neck with the median lobe and identified the right and left ureteral orifice I then marked out the location of the verumontanum I switched over to the resectoscope loop bipolar resectoscope Olympus system and then I marked out the distal end of my resection proximal to the verumontanum after marking this out then we started the resection at the 12 o'clock position work my way laterally in the right side all the way to the apex and went to the left side all the way to the apex and pulled back behind the apex there is some flapping tissue comes in the roof very carefully resected this to make sure there is no obstructive flap flapping tissue we did a flow test had a nice wide open flow good open channel from the verumontanum into the bladder neck all the chips were Ellik out he was catheter was put in and continues bladder irrigation is taken back to PACU in good condition he had a nice wide open flow short obstructive prostate which was opened up. Type of Anesthesia:: General Drains: 3 way vera - Admit VTE Documentation VTE Present on Admission: No VTE Mechan Device Prophylaxis: SCD's
[2019-07-26] MEDS: 0.9% Normal Saline 1,000 ML 75 ML IV (14:33)
--- NOTE | 2019-07-26 16:30 | CHAPLAIN ---
Type of Pastoral Visit _x__ Initial Visit ___ Follow-up Visit ___ On-call Visit ___ General Patient Visit ___ Spiritual Assessment ___ Family Conference ___ Bereavement ___ Rapid Response ___ Code Blue ___ Other (describe below) Pastoral Care Referral From _x__ Patient _x__ Family ___ Nurse ___ Physician ___ Decorator Lighting Fixtures ___ Laminating Machine Tender ___ Other (describe below) Sacrament/Intervention _x__ Active listening ___ Anointing ___ Rastafari ___ Bereavement ___ Communion ___ Meliza exploration ___ _x__ Life review _x__ Prayer ___ Reconciliation ___ Sacrament of Sick ___ Supportive presence ___ Wedding ___ Other (describe below) Pastoral Comments
[2019-07-26] MEDS: Pramipexole Di-HCl 1 MG Tablet 1.5 MG PO (18:26)
[2019-07-26] MEDS: Carbidopa/Levodopa 25/250 Tablet PO (18:27)
[2019-07-26] MEDS: Psyllium 1 PACKET PO (18:27)
[2019-07-26] MEDS: Docusate Sodium 100 MG Capsule PO (18:28)
[2019-07-26] MEDS: Ciprofloxacin 500 MG Tablet PO (21:57)
[2019-07-27 00:16] VITALS: BP 136/78; PULSE 66; RESP 16; TEMP 36.3; O2SAT 98
[2019-07-27] MEDS: 0.9% Normal Saline 1,000 ML 75 ML IV (03:57)
[2019-07-27] MEDS: Carbidopa/Levodopa 25/250 Tablet PO ×2 (07:22→10:58)
--- NOTE | 2019-07-27 07:22 | PCM.PROGNOTE ---
Subjective: Doing well status post TURP. - Physical Exam Vital Signs Temp Pulse Resp BP Pulse Ox 97.3 F L 66 16 136/78 H 98 07/27/19 00:16 07/27/19 00:16 07/27/19 00:16 07/27/19 00:16 07/27/19 00:16 Oxygen Delivery Method CPAP Weight: 102.6 kg Body Mass Index (BMI) 32.4 Intake and Output for Last 24 Hours 07/25/19 07/26/19 07/27/19 23:59 23:59 23:59 Intake Total 986.67 / 986.67 1000 / 1000 Output Total 4300 / 4300 0 / 0 Balance -3313.33 / -3313.33 1000 / 1000 Medical Necessity - Tobacco Use Smoking Status: Never smoker Tobacco Use: Non-smoker Assessment/Plan Arias catheter will be removed this morning, he can go home after he urinates and PVRs are low.
[2019-07-27 07:30] VITALS: BP 139/66; PULSE 69; RESP 16; TEMP 36.7; O2SAT 93
[2019-07-27 08:00] VITALS: PULSE 83; RESP 12; O2SAT 96
[2019-07-27] MEDS: Docusate Sodium 100 MG Capsule PO (08:40)
[2019-07-27] MEDS: Psyllium 1 PACKET PO (08:40)
[2019-07-27] MEDS: Ciprofloxacin 500 MG Tablet PO (08:40)
[2019-07-27] MEDS: Pantoprazole Sodium 40 MG Tablet PO (08:41)
[2019-07-27] MEDS: Ibuprofen 600 MG Tablet PO (08:41)
[2019-07-27] MEDS: Pramipexole Di-HCl 1 MG Tablet 1.5 MG PO (08:41)
[2019-07-27 12:15] VITALS: BP 147/80; PULSE 70; RESP 16; TEMP 36.8; O2SAT 97
== END 2019-07-27 15:27 | disposition home or self-care (01) ==
LOC: SDC 09:49 → AC 09:50 → MS3 10:50
PROVIDERS: Family Provider Family Medicine; PCP Family Medicine; Referring Provider Urology; Visit Provider Urology
PROC: (CPT 52601; principal; 2019-07-26 11:15)
DX: N40.1 Benign prostatic hyperplasia with lower urinary tract symptoms (principal); R35.0 Frequency of micturition; R39.15 Urgency of urination; N13.8 Other obstructive and reflux uropathy; G20 Parkinson's disease; G47.30 Sleep apnea, unspecified; K21.9 Gastro-esophageal reflux disease without esophagitis; Z79.82 Long term (current) use of aspirin; Z79.899 Other long term (current) drug therapy
CPT/HCPCS: 52601; 36415; 80048; 85027; 86850; 86900; 86901; 88305; J7030; J2405

== ENCOUNTER → 2020-09-09 15:41 | Outpatient (CLI) | payer BC, SELFPAY ==
[2019-07-26 10:06] VITALS: BMI 32.4
[2020-09-09 17:40] LABS: Absolute Lymphocyte Count 1.21 X10^3/uL (0.83-4.51); Absolute Neutrophil Count 4.9 X10^3/uL (2.0-7.7); Basophil# 0.02 X10^3/uL; Basophil% 0.3 % (0-1); Eosinophil# 0.05 X10^3/uL; Eosinophils% 0.7 % (0-5); Hematocrit 42.3 % (40-54); Hemoglobin 13.9 g/dL (13.0-16.5); Lymphocyte # 1.21 X10^3/ul (4.0); Lymphocyte % 17.9 % (19-41); Mean Corp Hgb Conc 32.9 g/dL (32-36); Mean Corpuscular Volume 88.3 fL (80-94); Mean Platelet Vol. 9.9 fl (6.2-12.0); Monocyte# 0.59 X10^3/uL; Monocyte% 8.7 % (0-10); NRBC Flagged by Analyzer 0 % (0-5); Neutrophil # 4.87 X10^3/uL (2.7-7.7); Platelet Count 227 K/mm3 (150-450); RBC Distribution Width CV 13.1 % (11.6-14.6); RBC Distribution Width SD 42.8 fl (35.1-43.9); Red Blood Count 4.79 M/mm3 (4.6-6.2); White Blood Count 6.8 K/mm3 (4.4-11.0)
[2020-09-09 19:38] LABS: ALB/GLOB Ratio 1.2 RATIO (0.9-2.4); AST(SGOT) 17 U/L (15-37); Alanine Aminotransfer ALT/SGPT 14 U/L (16-61); Albumin, Serum 3.9 g/dL (3.2-5.0); Alkaline Phosphatase 83 U/L (45-117); Anion Gap 6 (5-15); BUN 20 mg/dL (7-18); BUN/Creat Ratio 20.3 RATIO (10-20); Chloride 105 mmol/L (98-107); Creatinine, Serum 0.98 mg/dL (0.70-1.30); EST Glomerular Filtration Rate 81 mL/min (>60); Est Glom Filt Rate - Afr Amer 98 mL/min (>60); Globulin 3.3 g/dL (2.2-4.2); Glucose 95 mg/dL (74-106); PSA,Total - Annual Screen 5.86 ng/mL (0.00-4.00); Protein, Total 7.2 g/dL (6.4-8.2); Sodium Level 139 mmol/L (136-145)
== END ==
PROVIDERS: PCP Family Medicine; Visit Provider Family Medicine
DX: Z51.81 Encounter for therapeutic drug level monitoring (principal); Z12.5 Encounter for screening for malignant neoplasm of prostate
CPT/HCPCS: 36415; 80053; 84153; 85025; G0103

== ENCOUNTER 2021-08-19 11:52 | Emergency (ER) | payer MEDICARE, BC, SELFPAY ==
[2021-08-19 11:53] VITALS: BP 167/88; PULSE 74; RESP 14; TEMP 36.4; O2SAT 96; BMI 32.1
--- NOTE | 2021-08-19 12:33 | RAD_ITS ---
STUDY: X-RAY - LEFT FOOT CLINICAL: Male, 65 years old. foot injury TECHNIQUE: 3 view(s) of the foot. COMPARISON: None. FINDINGS: No acute fracture, dislocation or osseous destruction. High arch foot. Plantar spur. Mild joint space narrowing at the digits. Osteopenia. Vascular calcifications. Mild soft tissue swelling. RAD/Foot min 3 Views IMPRESSION: Left foot acutely intact Degenerative changes, as above Mild soft tissue swelling Electronically Signed: Fred Jackson DO at 12:51 EDT Tel , Service support ,
--- NOTE | 2021-08-19 13:10 | EDS_ITS ---
HPI History of Present Illness Chief Complaint: Lower Extremity Injury Narrative Narrative: 55-year-old male presenting with left foot pain. He states he initially injured this about a week ago when he was walking and he felt a slight twist. Did not feel a crack or pop. He states he was ambulatory at that time and did improve. He notes that today he had some mild pain when walking into the eye doctor's office. When he went to walk out he was having too much pain to walk. Patient denies any new trauma. Patient denies paresthesias. Patient has not had imaging of the left foot. [facility] Medical History Basal cell carcinoma Melanoma Parkinson's disease Home Medications cholecalciferol (vitamin D3) 5,000 unit PO DAILY 12/28/18 [History Last Taken Unknown] cyanocobalamin (vitamin B-12) 1,000 mcg PO DAILY 12/28/18 [History Last Taken Unknown] multivitamin [Daily Multiple] 1 ea PO DAILY 12/28/18 [History Last Taken Unknown] omeprazole 20 mg PO DAILY 12/28/18 [History Last Taken 07/26/19 08:00] psyllium husk [Metamucil] 1 cap PO BID 12/28/18 [History Last Taken Unknown] carbidopa-levodopa 1 tab PO TIDAC 07/11/19 [History Last Taken 07/26/19 08:00] cetirizine-pseudoephedrine 1 ea PO DAILY PRN 07/11/19 [History Last Taken Unknown] coenzyme Q10 100 mg PO DAILY 07/11/19 [History Last Taken Unknown] melatonin 3 mg PO QHS 07/11/19 [History Last Taken Unknown] milk thistle 150 mg PO DAILY 07/11/19 [History Last Taken Unknown] ropinirole 4 mg PO BID 07/11/19 [History Last Taken 07/26/19 08:00] tyrosine 350 mg PO DAILY 07/11/19 [History Last Taken Unknown] ciprofloxacin HCl 500 mg PO BID #14 tab 07/26/19 [Rx Last Taken Unknown] ibuprofen 600 mg PO Q6H PRN PRN #20 tab 07/26/19 [Rx Last Taken Unknown] Allergy/AdvReac Type Severity Reaction Status Date / Time amoxicillin Allergy Hives Verified 08/19/21 11:53 Social History Smoking Status: Never smoker ROS ROS ED Constitutional Constitutional ED: Denies chills or fever(s) Eyes Eyes: Denies blurry vision or change in vision ENT ENT ED: Denies rhinorrhea or sore throat Cardiovascular Cardiovascular: Denies chest pain or racing heartbeat Respiratory/Chest Respiratory/Chest: Denies cough, dyspnea or sputum Gastrointestinal Gastrointestinal: Denies abdominal pain, nausea or vomiting Genitourinary Genitourinary ED: Denies dysuria or hematuria Musculoskeletal Musculoskeletal: Reports other Details: Left foot pain ; Denies back pain or neck pain Integumentary Denies Abrasions or rash Neurologic Neurologic: Denies headache(s) or paresthesias EXAM Physical Exam Const Vital Signs: 08/19/21 11:53 Temperature 97.6 F L Temperature Source Temporal Pulse Rate 74 Respiratory Rate 14 Blood Pressure 167/88 H Blood Pressure Mean 114 Pulse Ox 96 Oxygen Delivery Method Room Air Positive well nourished General Appearance ED: NAD HEENT normocephalic and atraumatic Resp normal respiratory effort Cardio regular rate and regular rhythm Extremity normal to inspection and full ROM Extremity Narrative: Left foot is not tender to palpation. It does hurt with pressure on this ambulating. Left foot is neurovascular intact brisk cap refill all 5 toes General Extremety ED: Yes weight-bearing difficulty General Extremity: weight-bearing difficulty Psych mental status grossly normal Skin Lesions: no lesions Rashes: no rashes MDM MDM MDM Narrative Medical decision making narrative: Patient presenting with left foot pain. This is nontraumatic. It was initially noticed about a week ago and then came back today when he was ambulating. I cannot reproduce this on examination however when he stands and puts pressure on it it does hurt across the midfoot. There is no rash or cellulitic change. No obvious injuries. Left foot neurovascular intact. X-rays obtained to the left foot show mild soft tissue swelling without acute fracture or subluxation. This is on my interpretation and the radiologist does agree. Patient has history of Parkinson's and gait instability and after speaking with him and his they request a walker so that he can ambulate safely. They do not feel he is a candidate for crutches. Patient was placed in Papa wrap and no postop shoe. He was given follow-up with podiatry. Patient stable for discharge at this time. Impression: 1. Left foot sprain Radiography Diagnostic Testing: Radiology Impression Foot X-Ray 08/19/21 12:33 IMPRESSION: Left foot acutely intact Degenerative changes, as above Mild soft tissue swelling Electronically Signed: Fred Jackson DO at 12:51 EDT Tel , Service support , Discharge Plan Triage Chief Complaint: Lower Extremity Injury ED Provider: John Carbajal Dx/Rx/DC Orders Instructions: ED Foot Sprain Prescriptions: No Action multivitamin [Daily Multiple] 1 EACH tablet 1 ea PO DAILY RF: 0 cyanocobalamin (vitamin B-12) 1,000 MCG tablet 1,000 mcg PO DAILY RF: 0 omeprazole 20 MG capsule 20 mg PO DAILY RF: 0 cholecalciferol (vitamin D3) 5,000 UNIT capsule 5,000 unit PO DAILY RF: 0 psyllium husk [Metamucil] 0.4 GM capsule 1 cap PO BID RF: 0 cetirizine-pseudoephedrine 1 EACH tablet extended release 12 hr 1 ea PO DAILY PRN (Reason: Allergies) RF: 0 carbidopa-levodopa 1 TABLET tablet 1 tab PO TIDAC RF: 0 tyrosine 500 MG capsule 350 mg PO DAILY RF: 0 melatonin 3 MG tablet 3 mg PO QHS RF: 0 milk thistle 150 MG capsule 150 mg PO DAILY RF: 0 ropinirole 4 MG tablet 4 mg PO BID RF: 0 coenzyme Q10 100 MG capsule 100 mg PO DAILY RF: 0 ciprofloxacin HCl 500 MG tablet 500 mg PO BID Qty: 14 RF: 0 ibuprofen 600 MG tablet 600 mg PO Q6H PRN PRN (Reason: Pain) Qty: 20 RF: 0 Primary Care Provider: Dirk Ramos Referrals: Heaven sEpaña DPM [STAFF PHYSICIAN] - As Needed Dirk Ramos DO [Primary Care Provider] -
[2021-08-19 13:21] VITALS: PULSE 89; RESP 20; O2SAT 99
--- NOTE | 2021-08-19 13:24 | ED.RN ---
THIS NURSE REVIEWED D/C INSTRUCTIONS WITH THE PT AND VISITOR. BOTH VERBALIZED UNDERSTANDING OF INSTRUCTIONS. PT DENIES FURTHER NEEDS OR QUESTIONS AT THIS TIME. PT AMBULATES FROM ROOM ON OWN WITHOUT ASSISTANCE FROM STAFF
== END 2021-08-19 13:27 | disposition home or self-care (01) ==
LOC: ED 12:34
PROVIDERS: Emergency Provider Student in an Organized Health Care Education/Training Program; PCP Family Medicine
DX: S93.602A Unspecified sprain of left foot, initial encounter (principal); X50.1XXA Overexertion from prolonged static or awkward postures, initial encounter; Y93.01 Activity, walking, marching and hiking; Y92.9 Unspecified place or not applicable; G20 Parkinson's disease; Z85.828 Personal history of other malignant neoplasm of skin; Z79.899 Other long term (current) drug therapy
CPT/HCPCS: 73630; 99283

== ENCOUNTER → 2022-05-26 | Outpatient (CLI) | payer MEDICARE, BC, SELFPAY ==
[2022-05-26 15:32] LABS: Absolute Lymphocyte Count 1.31 X10^3/uL (0.83-4.51); Absolute Neutrophil Count 4.5 X10^3/uL (2.0-7.7); Basophil# 0.02 X10^3/uL; Basophil% 0.3 % (0-1); Eosinophil# 0.03 X10^3/uL; Eosinophils% 0.5 % (0-5); Hemoglobin 12.4 g/dL (13.0-16.5); Lymphocyte # 1.31 X10^3/ul (0.83-4.51); Lymphocyte % 20.3 % (19-41); Mean Corp Hgb Conc 31.8 g/dL (32-36); Mean Corpuscular Hgb 27.4 pg (27.0-32.0); Mean Corpuscular Volume 86.3 fL (80-94); Mean Platelet Vol. 9.7 fl (6.2-12.0); Monocyte# 0.54 X10^3/uL; Monocyte% 8.4 % (0-10); NRBC Flagged by Analyzer 0 % (0-5); Neutrophil # 4.53 X10^3/uL (2.7-7.7); Platelet Count 360 K/mm3 (150-450); RBC Distribution Width CV 12.8 % (11.6-14.6); RBC Distribution Width SD 40.5 fl (35.1-43.9); Red Blood Count 4.52 M/mm3 (4.6-6.2); White Blood Count 6.5 K/mm3 (4.4-11.0)
[2022-05-26 15:33] LABS: Erythrocyte Sedimentation Rate 51 mm/hr (0-20)
[2022-05-26 16:05] LABS: ALB/GLOB Ratio 0.8 RATIO (0.9-2.4); AST(SGOT) 18 U/L (15-37); Alanine Aminotransfer ALT/SGPT 15 U/L (16-61); Albumin, Serum 3.2 g/dL (3.2-5.0); Alkaline Phosphatase 66 U/L (45-117); Anion Gap 6 (5-15); BUN 26 mg/dL (7-18); BUN/Creat Ratio 34.3 RATIO (10-20); Calcium,Total 9.4 mg/dL (8.5-10.1); Chloride 105 mmol/L (98-107); Creatinine, Serum 0.76 mg/dL (0.70-1.30); EST Glomerular Filtration Rate 109 mL/min (>60); Est Glom Filt Rate - Afr Amer 131 mL/min (>60); Glucose 105 mg/dL (74-106); Potassium 3.8 mmol/L (3.5-5.1); Protein, Total 7.2 g/dL (6.4-8.2); Sodium Level 139 mmol/L (136-145); Thyroid Stim Hormone (TSH) 1.14 uIU/mL (0.358-3.74)
== END | disposition home or self-care (01) ==
PROVIDERS: PCP Family Medicine; Referring Provider Family Medicine; Visit Provider Family Medicine
DX: M79.89 Other specified soft tissue disorders (principal); R60.0 Localized edema; Z51.81 Encounter for therapeutic drug level monitoring
CPT/HCPCS: 36415; 80053; 84443; 85025; 85652; 86140

== ENCOUNTER 2022-06-10 11:19 | Outpatient (CLI) | payer MEDICARE, BC, SELFPAY ==
[2022-06-10 15:35] LABS: Erythrocyte Sedimentation Rate 55 mm/hr (0-20)
[2022-06-13 14:14] LABS: Lyme IgG P18 Ab Absent (.); Lyme IgG P23 Ab Absent (.); Lyme IgG P28 Ab Absent (.); Lyme IgG P30 Ab Absent (.); Lyme IgG P39 Ab Absent (.); Lyme IgG P41 Ab Present (.); Lyme IgG P45 Ab Absent (.); Lyme IgG P58 Ab Present (.); Lyme IgG P66 Ab Absent (.); Lyme IgG P93 Ab Present (.); Lyme IgM P23 Ab Absent (.); Lyme IgM P39 Ab Absent (.); Lyme IgM P41 Ab Absent (.)
[2022-06-15 10:47] LABS: CCP IgG Antibodies 10 units (0-19); Lyme IgG WB Interpretation Negative (.); Lyme IgM WB Interpretation Negative (.)
== END 2022-06-10 23:59 | disposition home or self-care (01) ==
PROVIDERS: PCP Family Medicine; Referring Provider Family Medicine; Visit Provider Family Medicine
DX: M25.50 Pain in unspecified joint (principal); M25.449 Effusion, unspecified hand
CPT/HCPCS: 36415; 85652; 86140; 86200; 86431; 86617

== ENCOUNTER 2022-06-26 02:12 | Emergency (ER) | payer MEDICARE, BC, SELFPAY ==
[2022-06-26 02:12] VITALS: BP 167/99; PULSE 110; RESP 20; TEMP 37.1; O2SAT 97; BMI 33.0
--- NOTE | 2022-06-26 02:40 | EKG12_ITS ---
Test Reason : DYSRHYTHMIA Blood Pressure : / mmHG Vent. Rate : 103 BPM Atrial Rate : 103 BPM P-R Int : 128 ms QRS Dur : 084 ms QT Int : 316 ms P-R-T Axes : 057 002 032 degrees QTc Int : 413 ms Sinus tachycardia Otherwise normal ECG Confirmed by JOEY HENSON, ALIRIO ([id number]), commissioning editor ROB BURRIS ([id number]) on 06/26/2022 1:49:15 PM Referred By: KEO Confirmed By:ALIRIO COOK MD
--- NOTE | 2022-06-26 02:40 | RAD_ITS ---
INDICATION: cough, weak EXAMINATION/TECHNIQUE: X-RAY - AP view of chest COMPARISON: None. FINDINGS: LINES/DEVICES: None. LUNGS: No overt pulmonary edema or focal airspace consolidation. No sizable pleural effusion. No detectable pneumothorax. MEDIASTINUM AND CARDIOVASCULAR STRUCTURES: Heart size within normal limits for imaging technique. Atherosclerotic calcifications along aorta. BONES AND SOFT TISSUES: Skeletal degenerative changes. RAD/Chest 1 View (Portable) IMPRESSION: No radiographic evidence of acute cardiopulmonary disease. Electronically Signed: Dirk Villavicencio MD at 3:17 EDT ,
--- NOTE | 2022-06-26 02:44 | EX.ED.DYSGE1 ---
HPI History of Present Illness Chief Complaint: Weakness Informant: patient and spouse/S.O. Onset/Context/Timing Onset: Today (this past day; presents to ED around 0200) Context: Gradual Onset Timing: Continuous Quality: weak and achy Location: all over, worst in R popliteal space/knee Current Severity: Moderate Maximum Severity: Severe Worsened by: moving Relieved by: remaining still Associated Symptoms Associated Symptoms: subjective fever at home when spouse felt his head; cough Narrative Narrative: Patient has a history of Parkinson's, and for the last several weeks has developed painful joints in his hand with swelling, as well as pain behind the right knee that he has had for several months. This past day, he has had pain everywhere to the point where he cannot move which is unusual for him. He usually finds a way to get around but it was very hard tonight. This is been gradually getting worse all day. 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 The last time he had steroids was almost 1 week ago. He does have a minor nonproductive cough, however this is been chronic for months, and very intermittent, not necessarily worse today. He has chronic urinary symptoms that are no different today compared to usual. He denies any other new symptoms. [facility] Medical History Basal cell carcinoma Melanoma Parkinson's disease Home Medications multivitamin (Daily Multiple tablet) 1 ea PO DAILY SUPPLEMENT 12/28/18 [History Last Taken Unknown] omeprazole 20 mg capsule,delayed release 20 mg PO DAILY GERD 12/28/18 [History Last Taken 07/26/19 08:00] carbidopa 25 mg-levodopa 250 mg tablet 1 tab PO TIDAC 07/11/19 [History Last Taken 07/26/19 08:00] ropinirole 4 mg tablet 3 mg PO TID 07/11/19 [History Last Taken 07/26/19 08:00] meloxicam 15 mg tablet 15 mg PO DAILY 06/26/22 [History Last Taken Unknown] prednisone 20 mg tablet 40 mg PO DAILY #10 TABLETS 06/26/22 [Rx Last Taken Unknown] Allergy/AdvReac Type Severity Reaction Status Date / Time amoxicillin Allergy Hives Verified 06/26/22 02:15 Surgical History H/O transurethral resection of prostate History of left knee replacement Social History Smoking Status: Never smoker ROS ROS ED Constitutional Constitutional ED: Reports fever(s), malaise and subjective; Denies chills Eyes Eyes: Denies blurry vision, change in vision or diplopia ENT ENT ED: Denies ear pain, rhinorrhea or sore throat Cardiovascular Cardiovascular: Denies chest pain or palpitations Respiratory/Chest Respiratory/Chest: Reports cough; Denies dyspnea Gastrointestinal Gastrointestinal: Denies abdominal pain, diarrhea, nausea or vomiting Genitourinary Genitourinary ED: Reports nocturia and urinary frequency; Denies dysuria or hematuria Musculoskeletal Musculoskeletal: Reports arthralgias, extremity pain and myalgias; Denies back pain or neck pain Integumentary Denies abscess or rash Neurologic Neurologic: Denies headache(s), paresthesias or weakness Psychiatric Psychiatric: Denies anxiety or suicidal thoughts EXAM Physical Exam Const Vital Signs: 06/26/22 02:12 06/26/22 02:17 06/26/22 04:17 Temperature 98.8 F Temperature Source Oral Pulse Rate 110 H 99 Respiratory Rate 20 H 16 Respiratory Effort Normal Respiratory Pattern Normal Blood Pressure 167/99 H 153/69 H Blood Pressure Mean 121 Pulse Ox 97 95 Oxygen Delivery Method Room Air Positive well nourished and well developed General Appearance ED: well developed and NAD HEENT Reports moist mucous membranes normocephalic and atraumatic Eyes PERRL and EOMs intact bilaterally Neck full ROM and supple Chest Wall inspection of chest normal and palpation of chest normal Resp normal respiratory effort and clear to auscultation bilaterally Cardio regular rate, regular rhythm and no murmurs Rate: tachycardic GI non-tender and non-distended Auscultation: normoactive bowel sounds Palpation: soft Back/Spine no CVA tenderness General Back: other FROM Extremity normal to inspection Extremity Narrative: Nontender right knee and popliteal fossa. No palpable mass. Minimal, if any, effusion. No excessive warmth, no erythema. Limited range of motion right knee due to pain. Limited range of motion passively and actively of all 4 extremities due to stiffness and pain. General Extremety ED: Yes edema; Negative for pulses abnormal or tenderness General Extremity: edema bilateral upper extremity (Hands, symmetric) moderate; Negative for pulses abnormal Neuro oriented x3, CN's II-XII intact bilaterally and no sensory deficits noted Sensorium / Orientation: awake and alert Motor Exam: strength 5/5 throughout Psych mental status grossly normal Skin no rashes or lesions noted and no wounds MDM MDM MDM Narrative Medical decision making narrative: Aside from mild tachycardia, his EKG is normal. His chest x-ray 1 view on my interpretation is normal. His urinalysis does not show signs of infection, his labs are normal, his COVID is negative. He is not leukopenic so this is probably accurate. He was a little prerenal, but he usually is and that is probably not causing his pain. Given all of this and ruling out infections, my suspicion is that this is related to his arthritis. When I discussed this with him, the patient agrees. I suggest putting him on a short course of prednisone to see if that helps to suppress the symptoms, and he and family are amenable to that plan and following up closely. I offered admission if he felt like he was in too much pain and too weak to get home, but he states that he got here, and after conferring with his family, declines and states that he will try to go home tonight, he requested something for pain which we gave him as well as Solu-Medrol. Lab Data Attestation: I reviewed the patient's lab results. Labs: Laboratory Results - last 24 hr 06/26/22 06/26/22 06/26/22 02:30 02:30 02:53 WBC 9.1 RBC 4.57 L Hgb 12.2 L Hct 39.3 L MCV 86.0 MCH 26.7 L MCHC 31.0 L RDW Std Deviation 44.5 H RDW Coeff of Ernesto 14.3 Plt Count 267 MPV 9.1 Immature Gran % (Auto) 0.400 Neut % (Auto) 81.4 H Lymph % (Auto) 11.0 L [place] % (Auto) 6.6 Eos % (Auto) 0.4 Baso % (Auto) 0.2 Absolute Neuts (auto) 7.4 Absolute Lymphs (auto) 1.00 Nucleated RBC % 0 Sodium 140 Potassium 3.8 Chloride 106 Carbon Dioxide 28.0 Anion Gap 6 BUN 23 H Creatinine 0.80 Estim Creat Clear Calc 91.25 Est GFR (MDRD) Af Amer 123 Est GFR (MDRD) Non-Af 101 BUN/Creatinine Ratio 28.6 H Glucose 118 H Calcium 9.1 Troponin I High Sens 6 Urine Color Yellow Urine Clarity Clear Urine pH 7.0 Ur Specific [place] 1.015 Urine Protein 15 H Urine Glucose (UA) Normal Urine Ketones Negative Urine Occult Blood 10 H Urine Nitrite Negative Urine Bilirubin Negative Urine Urobilinogen 1 H Ur Leukocyte Esterase 25 H Urine RBC 0 SEEN Urine WBC 0-5 SEEN Ur Squamous Epith Cells 0 SEEN Urine Bacteria 1+ Urine Mucus RARE Radiography Diagnostic Testing: Clinical Impression(s) from Imaging Studies Chest X-Ray 06/26/22 02:40 IMPRESSION: No radiographic evidence of acute cardiopulmonary disease. Electronically Signed: Dirk Villavicencio MD at 3:17 EDT , Rhythm Strip Rhythm Strip: Sinus Tach Rate: 105 Ectopy: None EKG Initial EKG: Attestation: I personally reviewed and interpreted this EKG as follows: Interpretation: No Acute Injury Pattern and Sinus Tachycardia Discharge Plan Triage Chief Complaint: Weakness ED Provider: Josh Hess Dx/Rx/DC Orders Clinical Impression: Arthritis, Cough, Weakness Instructions: What Is Arthritis? Prescriptions: New prednisone 20 mg tablet 40 mg PO DAILY Qty: 10 0RF Rx Instructions: start 06/27 No Action multivitamin [Daily Multiple] 1 EACH tablet 1 ea PO DAILY omeprazole 20 MG capsule 20 mg PO DAILY carbidopa-levodopa 1 TABLET tablet 1 tab PO TIDAC ropinirole 4 MG tablet 3 mg PO TID meloxicam 15 mg Tablet 15 mg PO DAILY Primary Care Provider: Dirk Ramos Referrals: Dirk Ramos DO [Primary Care Provider] - 1-2 Days if not improving Disposition Disposition: Home, Self Care Discharge Date/Time: 06/26/22 04:18
[2022-06-26] MEDS: 0.9% Normal Saline 1,000 ML 150 ML IV (02:48)
[2022-06-26 02:51] LABS: Absolute Neutrophil Count 7.4 X10^3/uL (2.0-7.7); Basophil# 0.02 X10^3/uL; Basophil% 0.2 % (0-1); Eosinophil# 0.04 X10^3/uL; Eosinophils% 0.4 % (0-5); Hematocrit 39.3 % (40-54); Hemoglobin 12.2 g/dL (13.0-16.5); Mean Corpuscular Hgb 26.7 pg (27.0-32.0); Mean Platelet Vol. 9.1 fl (6.2-12.0); Monocyte% 6.6 % (0-10); NRBC Flagged by Analyzer 0 % (0-5); Neutrophil # 7.43 X10^3/uL (2.7-7.7); Neutrophil % 81.4 % (47-70); Platelet Count 267 K/mm3 (150-450); RBC Distribution Width CV 14.3 % (11.6-14.6); RBC Distribution Width SD 44.5 fl (35.1-43.9); Red Blood Count 4.57 M/mm3 (4.6-6.2); White Blood Count 9.1 K/mm3 (4.4-11.0)
[2022-06-26 02:56] LABS: Color, Urine Yellow (Yellow); Glucose, Dipstick Normal (Normal); Ketone-Dipstick Negative (Negative); Leukocyte Esterase-Dipstick 25 /ul (Negative); Nitrite-Dipstick Negative (Negative); Occult Blood-Urine 10 /ul (Negative); Protein-Dipstick 15 mg/dl (Negative); Red Blood Cells-Urine 0 SEEN /hpf (0-5); Specific Gravity, Urine 1.015 (1.002-1.030); Squamous Epithelial Cells - UA 0 SEEN /hpf (0-5); Urine Bilirubin Dipstick Negative (Negative); Urine Clarity Clear (Clear); Urine Urobilinogen 1 mg/dl (Normal)
[2022-06-26 03:02] LABS: Bacteria 1+ /hpf (None Seen); Mucous, Urine RARE /hpf (<or=2+); White Blood Cells 0-5 SEEN /hpf (0-5)
[2022-06-26 03:10] LABS: Anion Gap 6 (5-15); BUN 23 mg/dL (7-18); BUN/Creat Ratio 28.6 RATIO (10-20); Calcium,Total 9.1 mg/dL (8.5-10.1); Chloride 106 mmol/L (98-107); EST Glomerular Filtration Rate 101 mL/min (>60); Est Glom Filt Rate - Afr Amer 123 mL/min (>60); Estimated Creatinine Clearance 91.25 ml/min; Glucose 118 mg/dL (74-106); Potassium 3.8 mmol/L (3.5-5.1); Sodium Level 140 mmol/L (136-145); Troponin-I HS 6 pg/mL (3.0-78.0)
[2022-06-26] MEDS: Morphine 4 MG/ML Syringe IV (03:53)
[2022-06-26] MEDS: MethylPREDNISolone 125 MG/2 ML Vial IV (03:53)
[2022-06-26 04:17] VITALS: BP 153/69; PULSE 99; RESP 16; O2SAT 95
== END 2022-06-26 04:18 | disposition home or self-care (01) ==
PROVIDERS: Emergency Provider Emergency Medicine; PCP Family Medicine; Visit Provider Emergency Medicine
DX: M19.041 Primary osteoarthritis, right hand (principal); G20 Parkinson's disease; R05.9 Cough, unspecified; R53.1 Weakness; Z85.828 Personal history of other malignant neoplasm of skin; Z85.820 Personal history of malignant melanoma of skin; Z79.899 Other long term (current) drug therapy; M19.042 Primary osteoarthritis, left hand; M17.11 Unilateral primary osteoarthritis, right knee
CPT/HCPCS: 71045; 80048; 81001; 84484; 85025; 87428; 93005; 96361; 96374; 96375; 99284; J7030; A4216

== ENCOUNTER → 2023-01-18 | Outpatient (CLI) | payer MEDICARE, BC, SELFPAY ==
[2023-01-18 17:33] LABS: Absolute Lymphocyte Count 0.87 X10^3/uL (0.83-4.51); Absolute Neutrophil Count 4.3 X10^3/uL (2.0-7.7); Basophil# 0.05 X10^3/uL; Basophil% 0.9 % (0-1); Eosinophil# 0.03 X10^3/uL; Eosinophils% 0.5 % (0-5); Hematocrit 40.9 % (40-54); Hemoglobin 13.2 g/dL (13.0-16.5); Lymphocyte # 0.87 X10^3/ul (0.83-4.51); Lymphocyte % 15.1 % (19-41); Mean Corp Hgb Conc 32.3 g/dL (32-36); Mean Corpuscular Hgb 28.5 pg (27.0-32.0); Mean Corpuscular Volume 88.3 fL (80-94); Mean Platelet Vol. 9.3 fl (6.2-12.0); Monocyte# 0.45 X10^3/uL; Monocyte% 7.8 % (0-10); NRBC Flagged by Analyzer 0 % (0-5); Neutrophil # 4.34 X10^3/uL (2.7-7.7); Neutrophil % 75.2 % (47-70); Platelet Count 211 K/mm3 (150-450); RBC Distribution Width CV 13.2 % (11.6-14.6); RBC Distribution Width SD 42.2 fl (35.1-43.9); Red Blood Count 4.63 M/mm3 (4.6-6.2); White Blood Count 5.8 K/mm3 (4.4-11.0)
== END | disposition home or self-care (01) ==
PROVIDERS: PCP Family Medicine; Referring Provider Internal Medicine Rheumatology; Visit Provider Internal Medicine Rheumatology
DX: D64.9 Anemia, unspecified (principal)
CPT/HCPCS: 36415; 85025

== ENCOUNTER → 2024-08-07 | Outpatient (CLI) | payer MEDICARE, BC, SELFPAY ==
[2024-08-07 15:43] LABS: Absolute Lymphocyte Count 1.11 X10^3/uL (0.83-4.51); Absolute Neutrophil Count 4.4 X10^3/uL (2.0-7.7); Basophil# 0.03 X10^3/uL; Basophil% 0.5 % (0-1); Eosinophil# 0.02 X10^3/uL; Eosinophils% 0.3 % (0-5); Hemoglobin 13.9 g/dL (13.0-16.5); Lymphocyte # 1.11 X10^3/ul (0.83-4.51); Lymphocyte % 17.8 % (19-41); Mean Corp Hgb Conc 33.1 g/dL (32-36); Mean Corpuscular Hgb 29.6 pg (27.0-32.0); Mean Corpuscular Volume 89.6 fL (80-94); Mean Platelet Vol. 10.1 fl (6.2-12.0); Monocyte# 0.67 X10^3/uL; Monocyte% 10.8 % (0-10); NRBC Flagged by Analyzer 0 % (0-5); Neutrophil # 4.38 X10^3/uL (2.7-7.7); Neutrophil % 70.4 % (47-70); Platelet Count 199 K/mm3 (150-450); RBC Distribution Width CV 12.6 % (11.6-14.6); RBC Distribution Width SD 41.1 fl (35.1-43.9); Red Blood Count 4.69 M/mm3 (4.6-6.2); White Blood Count 6.2 K/mm3 (4.4-11.0)
[2024-08-07 15:57] LABS: Vitamin B12 285 pg/mL (211-911)
[2024-08-07 16:06] LABS: ALB/GLOB Ratio 1.5 RATIO (0.9-2.4); AST(SGOT) 48 U/L (15-37); Alanine Aminotransfer ALT/SGPT 17 U/L (16-61); Albumin, Serum 4.1 g/dL (3.2-5.0); Alkaline Phosphatase 70 U/L (45-117); Anion Gap 8 (5-15); BUN 23 mg/dL (7-18); BUN/Creat Ratio 29.6 RATIO (10-20); CRP 5.01 mg/L (0.0-3.0); Calcium,Total 9.4 mg/dL (8.5-10.1); Chloride 108 mmol/L (98-107); Creatinine, Serum 0.78 mg/dL (0.70-1.30); EST Glomerular Filtration Rate 105 mL/min (>60); Est Glom Filt Rate - Afr Amer 127 mL/min (>60); Globulin 2.8 g/dL (2.2-4.2); Glucose 96 mg/dL (74-106); LDH 272 U/L (87-241); Potassium 3.5 mmol/L (3.5-5.1); Protein, Total 6.9 g/dL (6.4-8.2); Sodium Level 141 mmol/L (136-145)
[2024-08-07 16:22] LABS: Erythrocyte Sedimentation Rate 3 mm/hr (0-20)
== END | disposition home or self-care (01) ==
LOC: BFHLAB 13:21
PROVIDERS: PCP Family Medicine; Referring Provider Family Medicine; Visit Provider Family Medicine
DX: R41.0 Disorientation, unspecified (principal); W19.XXXA Unspecified fall, initial encounter; R53.1 Weakness; R63.4 Abnormal weight loss; Z12.5 Encounter for screening for malignant neoplasm of prostate
CPT/HCPCS: 36415; 80053; 82607; 83615; 84153; 84443; 85025; 85652; 86140; 87086; 87088; G0103

== ENCOUNTER → 2024-08-31 | Outpatient (CLI) | payer MEDICARE, BC, SELFPAY ==
--- NOTE | 2024-08-31 08:00 | PROSB_PTH ---
PATIENT: YAMILA ADAMS LOC: [facility] U#:[id number] AGE/SX: 68/M ROOM: RE08/31/[address]: Dr. Davon Carvajal MD : 1955 BED: DIS: 08/31/2024 SPEC #: [id number] RECD: 09/01/24 10:07 STATUS: JOHN REJuliane #: [id number] KRISTIE: 08/31/24 08:[address]: Davon Carvajal DEPT: SURGICAL PATHOLOGY RECD BY: Radha Zhang ENTERED: 09/01/24 10:08 SP TYPE: PROST BX OTHR DR: Dr. Dirk Ramos, DO Tissues: Prostate, NOS Procedures: Surgery Specimen Level IV HEADER OPERATION: Prostate biopsy PRE-OP DIAGNOSIS: Elevated PSA TISSUE SUBMITTED: Prostate biopsy MICROSCOPIC DIAGNOSIS Prostate, core biopsy: Prostatic adenocarcinoma. Gardner grade: 5+3=8 Number of cores involved: 3/6 Proportion of tissue involved: ~50% Perineural invasion: Not identified. Greatest tumor length: 0.9 cm Focal high-grade prostatic intraepithelial neoplasia (HGPIN). Focal chronic inflammation. See comment. 09/04/2024 COMMENT Case has been reviewed in consultation with Dr. Frank who concurs with the above diagnosis. IDC:AM MICROSCOPIC DESCRIPTION Slides are reviewed. GROSS DESCRIPTION Received is one container designated Prostate biopsy. The specimen consists of six fragments of light miranda-white soft tissue measuring 1.0 to 1.5 cm in length and 0.1 cm in diameter. The specimen is totally submitted in three cassettes. 09/01/2024 TC:0 CPT:65875
== END | disposition home or self-care (01) ==
LOC: LABSPEC 16:23
PROVIDERS: PCP Family Medicine; Referring Provider Urology; Visit Provider Urology
DX: R97.20 Elevated prostate specific antigen [PSA] (principal)
CPT/HCPCS: 88305

== ENCOUNTER → 2024-09-12 | Outpatient (CLI) | payer MEDICARE, BC, SELFPAY ==
--- NOTE | 2024-09-12 08:30 | PET_ITS ---
EXAMINATION: F [address] ? INDICATIONS: 68-year-old male with a history of primary prostate carcinoma, presenting for apparent initial staging examination. ? COMPARISON EXAMINATION: None available ? INDEX LESION SIZE PROMISE SCORE SUV INTERPRETATION Left periclavicular region, right posteromedial chest wall 11.3 mm 2 11.77 Fulfills quantitative criteria for viable neoplasm ? Prostate gland, right of the midline base 11.9 2 13.7 Fulfills quantitative criteria for viable neoplasm ? Right acetabulum, right proximal femur ? R 3 16.65 Fulfills quantitative criteria for viable neoplasm ? TECHNIQUE: Following the intravenous administration of 9.63 mCi of F-18 Pylarify PSMA via the right hand, multiplanar image acquisitions of the head, neck, chest, abdomen and pelvis to the level of the midthigh, obtained at 73 minutes post tracer distribution reveal: ? The examination was interpreted using the EANM (Daniel et al., Journal of Nuclear Medicine Molecular Imaging 44:1622, 2017) and PROMISE (Jessy et al., Journal of Nuclear Medicine 59:469, 2018) interpretive criteria. ? HEIGHT:?? 70 inches WEIGHT:?? 210 pounds ? PSMA expression score PROMISE criteria: High (3): SUV > parotid-salivary gland, intermediate (2): SUV > liver, low (1): > blood pool, < liver, (0): < blood pool. ? SUV reference values: Parotid glands 18.11. Normal liver parenchyma 6.7. Blood pool 1.7. ? FINDINGS: ? HEAD/NECK:? Symmetric radiopharmaceutical concentration is defined in the bilateral parotid and submandibular glands. Physiologic tracer uptake is noted in the nasal cavity. ? Increased uptake is noted in the right posteromedial chest wall and left periclavicular region. The calculated maximum standard uptake value is 11.77. The PROMISE Score is 2. The maximal axial diameter of the metabolic, morphologic abnormality is 11.3 mm. ? There is no evidence of abnormal increased tracer uptake within the context of the cranial vault. ? CHEST: ? There is no quantitative scintigraphic evidence of abnormal increased radiopharmaceutical concentration within the context of the bilateral hemithorax pulmonary parenchyma, right and left hemithorax at the pleural interface, mediastinal structures, and left-right thoracic perihilum. ? CT of the chest demonstrates the following anatomic characteristics: Bilateral axillary soft tissue densities are nontracer avid. Atherosclerotic calcification is defined in the thoracic aorta without evidence of dilatation, aneurysm formation. Noncalcified parenchymal density noted in the right upper anterior lung field is ametabolic. Coronary artery calcification is observed. ? ABDOMEN/PELVIS:? Facilitated uptake is noted in the prostate gland to the right of midline posteriorly at the base. The calculated standard uptake value is 13.7. The PROMISE Score is 2. The maximal axial diameter of the metabolic, morphologic abnormality is 11.9 mm.? Uniform, homogeneous radiopharmaceutical concentration is defined in the hepatic and splenic parenchyma, visualization of the bilateral renal units, urinary bladder, and visualized intestinal tract. ? CT of the abdomen and pelvis is remarkable for the following: Atherosclerotic calcification is defined in the abdominal aorta without evidence of dilatation, aneurysm formation. Calcification is demonstrated in the prostate gland. A fat containing right inguinal hernia is noted. Right and left inguinal soft tissue densities are ametabolic. ? SKELETAL:? Facilitated uptake is noted in the right proximal femur and right acetabulum. The calculated standard uptake value is 16.65. The PROMISE Score approximates 3. ? PET/PET/CT Tumor Base -Thigh Init IMPRESSION: 1. ABNORMAL EXAMINATION INDICATIVE OF MALIGNANT-VIABLE NEOPLASM. 2. Increased fluorine labeled radiopharmaceutical concentration noted in the left periclavicular and right posteromedial chest wall fulfills quantitative criteria for viable neoplasm. 3. Enhanced tracer uptake visualized in the prostate gland to the right of midline fulfills quantitative criteria for malignant transformation. 4. Viable osseous neoplastic disease is demonstrated in the right proximal femur and right acetabulum, as described. (Eilora et al., Journal of Nuclear Medicine 59:469, 2018). Electronic Signature Bryan Rivers D.O. Accurate Quantification of SUVs and standardized PROMISE scores for this report are calculated using the exclusive [employer], ([place]. Patent No. [id number] [id number] [phone] [phone] patent [phone] [id number] [phone] ). Standardization and correction of the FDG SUV metric exclusively available with [employer] intellectual property, allow for vendor non-specific objective quantitative sequential FDG PET-CT comparison and otherwise unobtainable optimization of the sensitivity and specificity of the examination. [email or web address] Electronically Signed: Bryan Rivers DO at 8:27 EDT ,
== END | disposition home or self-care (01) ==
LOC: ONC 08:07
PROVIDERS: PCP Family Medicine; Referring Provider Urology; Visit Provider Urology
DX: C61 Malignant neoplasm of prostate (principal)
CPT/HCPCS: 78815; A9595

== ENCOUNTER → 2024-12-20 | Outpatient (CLI) | payer MEDICARE, BC, SELFPAY ==
[2024-12-20 09:59] LABS: PSA,Total- Diagnostic 2.69 ng/mL (0.0-4.0)
== END | disposition home or self-care (01) ==
LOC: MTLAB 08:07 → LAB 08:52
PROVIDERS: PCP Family Medicine; Referring Provider Nurse Practitioner; Visit Provider Nurse Practitioner
DX: C61 Malignant neoplasm of prostate (principal)
CPT/HCPCS: 36415; 84153